=== PATIENT | male | born 1970 | race Caucasian/White ===

== ENCOUNTER 2019-04-01 11:19 | Outpatient (CLI) | payer OTHER ==
[2019-04-01 18:25] LABS: BASOPHILS # (AUTO) 0.1 10^3/uL (0.0-0.1); BASOPHILS % (AUTO) 0.8 %; EOSINOPHILS # (AUTO) 0.2 10^3/uL (0.0-0.7); EOSINOPHILS % (AUTO) 2.4 %; HGB - HEMOGLOBIN 14.7 g/dL (14.0-18.0); LYMPHOCYTES # (AUTO) 1.5 10^3/uL (1.5-3.5); LYMPHOCYTES % (AUTO) 22.7 %; MEAN CORPUSCULAR HEMOGLOBIN 30.6 pg (27.0-31.0); MEAN CORPUSCULAR HGB CONC 33.6 g/dL (32.0-36.0); MEAN CORPUSCULAR VOLUME 91.1 fL (80.0-94.0); MEAN PLATELET VOLUME 10.8 fL (7.4-11.4); MONOCYTES # (AUTO) 0.6 10^3/uL (0.0-1.0); MONOCYTES % (AUTO) 9.6 %; NEUTROPHILS # (AUTO) 4.2 10^3/uL (1.5-6.6); PLT - PLATELET COUNT 260 10^3/uL (130-450); RED BLOOD COUNT 4.81 10^6/uL (4.70-6.10); RED CELL DISTRIBUTION WIDTH 12.5 % (12.0-15.0); WHITE BLOOD COUNT 6.6 x10^3/uL (4.8-10.8)
[2019-04-01 18:46] LABS: HB2 TOTAL 15.3 g/dL; HEMOGLOBIN A1C 0.46 g/dL; HEMOGLOBIN A1C % 4.9 % (4.6-6.2)
[2019-04-01 18:51] LABS: ALBUMIN 4.4 g/dL (3.2-5.5); ALBUMIN/GLOBULIN RATIO 1.6 (1.0-2.2); ALKALINE PHOSPHATASE 75 IU/L (42-121); ALT ALANINE AMINOTRANSFERASE 33 IU/L (10-60); AST ASPARTATE AMINOTRANSFERASE 29 IU/L (10-42); BILIRUBIN,TOTAL 2.3 mg/dL (0.2-1.0); BUN - BLOOD UREA NITROGEN 14 mg/dL (6-20); CALCIUM 9.1 mg/dL (8.5-10.3); CARBON DIOXIDE - CO2 26 mmol/L (21-32); CHLORIDE 106 mmol/L (101-111); CHOL/HDL RATIO 3.8 (<5.0); CHOLESTEROL 184 mg/dL; GFR - MDRD 79 (>89); GLUCOSE 97 mg/dL (70-100); HDL CHOLESTEROL 49 mg/dL; LDL CHOLESTEROL,CALCULATED 116 mg/dL; LDL/HDL RATIO 2.4 (<3.6); SODIUM 139 mmol/L (135-145); TOTAL PROTEIN 7.1 g/dL (6.7-8.2); VLDL CHOLESTEROL 19 mg/dL
== END 2019-04-01 23:59 | disposition home or self-care (01) ==
LOC: LAB.WCP 11:19
PROVIDERS: ATTEND Physician Assistant
DX: Z00.00 Encounter for general adult medical examination without abnormal findings (principal); Z83.3 Family history of diabetes mellitus
CPT/HCPCS: 36415; 80053; 80061; 83036; 83721; 84443; 85025

== ENCOUNTER 2020-05-24 10:11 | Day surgery (SDC) | payer OTHER ==
[2020-05-24] MEDS ORDERED: LACTATED RINGERS 1,000 ML IV ONE ×2 (10:51→12:38)
[2020-05-24] MEDS ORDERED: PROPOFOL 500 MG/50 ML 500 MG/50 ML VIAL ONE (11:38)
[2020-05-24] MEDS ORDERED: LIDOCAINE-MPF 2% 5 ML VIAL ONE (11:38)
[2020-05-24] MEDS ORDERED: fentaNYL 100 MCG/2 ML VIAL ONE (11:39)
[2020-05-24] MEDS ORDERED: MIDAZOLAM 2 MG/2 ML VIAL ONE (11:39)
--- NOTE | 2020-05-24 11:53 | ANESTHESIA ---
Pre-Anesthesia VS, & Labs - Diagnosis abdominal pain - Procedure colonoscopy Vital Signs: Temp Pulse Resp BP Pulse Ox 36.4 C L 66 18 140/81 H 98 05/24/20 10:46 05/24/20 10:46 05/24/20 10:46 05/24/20 10:46 05/24/20 10:46 Height: 6 ft 5 in Weight (kg): 121 kg Body Mass Index: 31.6 BMI Classification: Obese - NPO >8 hours Home Medications and Allergies Allergies/Adverse Reactions: Allergies Allergy/AdvReac Type Severity Reaction Status Date / Time No Known Drug Allergies Allergy Verified 09/19/19 00:05 Anes History & Medical History - Anesthetic History Anesthesia Complications: reports: No previous complications - Medical History Cardiovascular: reports: None Pulmonary: reports: Sleep apnea, CPAP use Gastrointestinal: reports: None Urinary: reports: None Neuro: reports: None Musculoskeletal: reports: None Endocrine/Autoimmune: reports: None Blood Disorders: reports: None Skin: reports: None Smoking Status: Former smoker (quit 10 years ago) Psychosocial: reports: No issues indicated, Alcohol (occassional) History of Cancer?: No - Surgical History General: reports: Cholecystectomy, Appendectomy, Colonoscopy Exam General: Alert, Oriented x3, Cooperative, No acute distress Dental: WNL Mouth Openin Fingerbreadth Neck Mobility: Normal Mallampati classification: II Thyromental Distance: greater than 6 cm Mental/Cognitive Status: Alert/Oriented X3, Normal for patient Plan Anesthesia Type: MAC Consent for Procedure(s) Verified and Reviewed: Yes Code Status: Attempt Resuscitation ASA classification: 2-Mild systemic disease Is this case an emergency?: No
[2020-05-24 13:07] VITALS: BP 110/68
--- NOTE | 2020-05-24 20:16 | ANESTHESIA POST OP EVALUATION ---
Anesthesia Post Eval - Post Anesthesia Eval Vitals: Last Vital Signs Temp 36.9 C 05/24/20 13:07 Pulse 72 05/24/20 13:07 Resp 16 05/24/20 13:07 BP 110/68 05/24/20 13:07 Pulse Ox 98 05/24/20 13:07 CV Function Including HR & BP: Stable Pain Control: Satisfactory Nausea & Vomiting: Negative Mental Status: Baseline Respiratory Status: Airway Patent Hydration Status: Satisfactory Anesthesia Complications: None
== END 2020-05-24 10:12 | disposition home or self-care (01) ==
LOC: SDS 10:11
PROVIDERS: ATTEND Surgery
DX: R10.11 Right upper quadrant pain (principal); K63.89 Other specified diseases of intestine; K64.8 Other hemorrhoids; G47.30 Sleep apnea, unspecified; K43.6 Other and unspecified ventral hernia with obstruction, without gangrene; K42.9 Umbilical hernia without obstruction or gangrene; Z90.49 Acquired absence of other specified parts of digestive tract; E66.9 Obesity, unspecified; Z68.31 Body mass index [BMI] 31.0-31.9, adult; Z87.891 Personal history of nicotine dependence
CPT/HCPCS: 45378; J7120

== ENCOUNTER 2020-05-31 17:15 | Outpatient (CLI) | payer OTHER | END 2020-05-31 17:16 | disposition home or self-care (01) | LOC: COV 17:15 | PROVIDERS: ATTEND Surgery | DX: Z01.812 Encounter for preprocedural laboratory examination (principal); K43.2 Incisional hernia without obstruction or gangrene; Z20.822 Contact with and (suspected) exposure to COVID-19 ==

== ENCOUNTER 2020-06-02 06:26 | Day surgery (SDC) | payer OTHER ==
[~2020-06-02 06:26] MED LIST: HEPARIN 5,000 UNIT/ML VIAL ONE; ceFAZolin 2 GM/50 ML 2 GM/50 ML BAG IV ONE
[2020-06-02] MEDS ORDERED: LACTATED RINGERS 1,000 ML IV ONE ×2 (06:56→10:59)
[2020-06-02] MEDS ORDERED: ceFAZolin 1 GM VIAL ONE ×2 (07:00→07:51)
[2020-06-02] MEDS ORDERED: BUPIVACAINE 0.5% PF 30 ML VIAL ONE (07:00)
[2020-06-02] MEDS ORDERED: LIDOCAINE MPF 2%-EPI 1:200000 20 ML VIAL ONE (07:00)
[2020-06-02] MEDS ORDERED: LIDOCAINE-MPF 2% 5 ML VIAL ONE (07:11)
[2020-06-02] MEDS ORDERED: PROPOFOL 200 MG/20 ML VIAL IVP ONE (07:11)
[2020-06-02] MEDS ORDERED: ROCURONIUM 50 MG/5 ML VIAL ONE ×2 (07:11→08:34)
[2020-06-02] MEDS ORDERED: BUPIVACAINE 0.5% PF 30 ML VIAL INFIL ONE ×2 (07:12→10:24)
[2020-06-02] MEDS ORDERED: LIDOCAINE 2%-EPI 1:100000 20 ML MDV SUBQ ONE ×2 (07:13→10:24)
[2020-06-02] MEDS ORDERED: MIDAZOLAM 2 MG/2 ML VIAL ONE (07:24)
[2020-06-02] MEDS ORDERED: fentaNYL 100 MCG/2 ML VIAL ONE ×2 (07:29→09:11)
[2020-06-02] MEDS ORDERED: ePHEDrine 50 MG/ML VIAL IVP ONE (08:27)
[2020-06-02] MEDS ORDERED: LIDOCAINE-PF 2% 10 ML AMP SUBQ ONE (08:54)
[2020-06-02] MEDS ORDERED: ONDANSETRON 4 MG/2 ML VIAL ONE (09:49)
[2020-06-02] MEDS ORDERED: DEXAMETHASONE 4 MG/ML VIAL ONE (09:49)
[2020-06-02] MEDS ORDERED: KETOROLAC 30 MG/ML VIAL ONE (09:49)
[2020-06-02] MEDS ORDERED: SUGAMMADEX 200 MG/2 ML VIAL IVP ONE (10:24)
[2020-06-02] MEDS ORDERED: HYDROmorphone 0.5 MG/0.5 ML SYRINGE IVP PRN ×2 (10:54→11:07)
[2020-06-02] MEDS ORDERED: oxyCODONE 5 MG TABLET PO PRN (10:54)
[2020-06-02] MEDS ORDERED: ONDANSETRON 4 MG/2 ML VIAL IVP PRN ×2 (10:54→11:07)
[2020-06-02] MEDS ORDERED: LACTATED RINGERS 1,000 ML IV SCH ×2 (11:00→12:00)
--- NOTE | 2020-06-02 11:04 | OPERATIVE REPORT ---
Operative Report - General Procedure Date: 06/02/20 Planned Procedure: 1. Diagnostic laparoscopy 2. Laparoscopic adhesiolysis 3. Possible IPOM x2 4. Possible primary repair 5. Possible transversus abdominis plane block Pre-Op Diagnosis: Primary laparoscopic surgery; Multiple incisional hernias Procedure Performed: 1. Diagnostic laparoscopy 2. Laparoscopic adhesiolysis, extensive 3. IPOM x2 (Intraperitoneal onlay mesh) 4. Right upper quadrant hernia reduction and primary repair, laparoscopic 5. Umbilical hernia primary repair 6. Transversus abdominis plane block Post Op Diagnosis: Same; dense adhesions; successful repair X2 - Procedure Note Primary Surgeon: Gilma Secondary Surgeon: Dana Anesthesia Provider: Joni Anesthesia Technique: General ET tube, Local, Regional block Pathology: None Estimated Blood Loss (mL): 20 Indications: 1. Worsening abdominal pain/discomfort 2. Incarcerated right upper quadrant incisional hernia, omental fat 3. Incarcerated nonreducible umbilical hernia, incisional 4. Prior laparoscopic cholecystectomy Findings: 1. Dense right upper quadrant adhesions omental around large defect approximately 4 cm x 3 cm with incarcerated fat 2. Successful reduction of right upper quadrant hernia; primary repair achieved with V-Loc suture 3. Intraperitoneal onlay mesh echo ventral light ST performed for right upper quadrant with 11 cm implant 4. Umbilical hernia large performed for primary repair after dissection and I palm performed using 15 x [address] implant 5. No inadvertent injury hemostatic successful repair 6. Trochars were as follows: A. Umbilical site B. Right upper quadrant 5 mm C. Right lower quadrant 5 mm D. Left upper quadrant 5 mm E. Left lower quadrant 5 mm F. Small incision made in right upper quadrant overlying the historic incisional hernia following repair with Deven-Karuna Complications: NONE - Other Other Information/Narrative: PENDING FINAL REPORT
[2020-06-02] MEDS ORDERED: MORPHINE 2 MG/ML CARPUJECT IVP PRN (11:07)
[2020-06-02] MEDS ORDERED: NALOXONE 0.4 MG/ML VIAL IVP PRN (11:07)
[2020-06-02] MEDS ORDERED: fentaNYL 100 MCG/2 ML VIAL IVP PRN (11:07)
[2020-06-02] MEDS ORDERED: ePHEDrine 50 MG/ML VIAL IVP PRN (11:07)
[2020-06-02] MEDS ORDERED: METOCLOPRAMIDE 10 MG/2 ML VIAL IVP PRN (11:07)
[2020-06-02] MEDS ORDERED: ATROPINE ABBOJECT 1 MG/10 ML SYRINGE IVP PRN (11:07)
--- NOTE | 2020-06-02 11:07 | ANESTHESIA ---
Pre-Anesthesia VS, & Labs - Diagnosis R incisional hernia, umbilical hernia - Procedure Diagnostic lap, incisional hernia repair, umbilical hernia repair Vital Signs: Temp Pulse Resp BP Pulse Ox 36.0 C L 75 16 132/77 H 96 06/02/20 06:58 06/02/20 06:58 06/02/20 06:58 06/02/20 06:58 06/02/20 06:58 Height: 6 ft 5 in Weight (kg): 122.6 kg Body Mass Index: 32.0 BMI Classification: Obese - NPO >8 hours Home Medications and Allergies Home Medications: Ambulatory Orders No Known Home Medications 05/25/20 Active Medications Hydromorphone HCl (Hydromorphone 0.5 Mg/0.5 Ml Syringe) 0.5 mg IVP Q30M PRN PRN Reason: Breakthrough Pain Lactated Ringer's (Lr) 1,000 mls @ 100 mls/hr IV .Q10H MARY Ondansetron HCl (Ondansetron 4 Mg/2 Ml Vial) 4 mg IVP Q6HR PRN PRN Reason: Nausea / Vomiting Oxycodone HCl (Oxycodone 5 Mg Tablet) 5 mg PO Q4HR PRN PRN Reason: PAIN No Known Home Medications 05/25/20 Allergies/Adverse Reactions: Allergies Allergy/AdvReac Type Severity Reaction Status Date / Time No Known Drug Allergies Allergy Verified 09/19/19 00:05 Anes History & Medical History - Anesthetic History Anesthesia Complications: reports: No previous complications Family history of Anesthesia Complications: Denies Family history of Malignant Hyperthermia: Denies - Medical History Cardiovascular: reports: None Pulmonary: reports: Sleep apnea, CPAP use Gastrointestinal: reports: None Urinary: reports: None Neuro: reports: None Musculoskeletal: reports: None Endocrine/Autoimmune: reports: None Blood Disorders: reports: None Skin: reports: None Smoking Status: Former smoker - Surgical History General: reports: Cholecystectomy, Appendectomy, Colonoscopy Exam General: Alert, Oriented x3, Cooperative Dental: WNL Mouth Openin Fingerbreadth Neck Mobility: Normal Mallampati classification: II Thyromental Distance: 4-6 cm Respiratory: Lungs clear Cardiovascular: Regular rate Plan Anesthesia Type: General, Transverse Abdominis Plane (TAP) Block Regional Block: Per Surgeon's request for Post Op pain control Consent for Procedure(s) Verified and Reviewed: Yes Code Status: Attempt Resuscitation ASA classification: 1-Healthy patient Is this case an emergency?: No
--- NOTE | 2020-06-02 11:34 | ANESTHESIA POST OP EVALUATION ---
Anesthesia Post Eval - Post Anesthesia Eval Vitals: Last Vital Signs Temp 36.2 C L 06/02/20 11:24 Pulse 76 06/02/20 11:24 Resp 14 06/02/20 11:24 BP 152/90 H 06/02/20 11:24 Pulse Ox 100 06/02/20 11:24 CV Function Including HR & BP: Stable Pain Control: Satisfactory Nausea & Vomiting: Negative Mental Status: Baseline Respiratory Status: Airway Patent Hydration Status: Satisfactory Anesthesia Complications: None
[2020-06-02] MEDS ORDERED: oxyCODONE 5 MG TABLET ONE (11:35)
[2020-06-02 15:19] VITALS: BP 145/78
== END 2020-06-02 06:27 | disposition home or self-care (01) ==
LOC: SDS 06:26
PROVIDERS: ATTEND Surgery
PROC: 0WUF4JZ Supplement Abdominal Wall with Synthetic Substitute, Percutaneous Endoscopic Approach (ICD-10-PCS; 2020-06-02)
PROC: 0DNU4ZZ Release Omentum, Percutaneous Endoscopic Approach (ICD-10-PCS; principal; 2020-06-02 07:30)
DX: K43.0 Incisional hernia with obstruction, without gangrene (principal); K40.90 Unilateral inguinal hernia, without obstruction or gangrene, not specified as recurrent; G47.30 Sleep apnea, unspecified; Z87.891 Personal history of nicotine dependence; Z90.49 Acquired absence of other specified parts of digestive tract; E66.9 Obesity, unspecified; Z68.32 Body mass index [BMI] 32.0-32.9, adult
CPT/HCPCS: 49329; 49655; A9270; C1781; J0690; J7120

== ENCOUNTER 2020-06-04 00:35 | Observation (INO) | payer OTHER ==
--- OUTSIDE RECORDS SUMMARY | 2020-06-04 00:52 | EXTERNAL MEDICAL SUMMARY RPT | Continuity of Care Document ---
:1970 Demographics Phone Unavailable Preferred Language Unknown Marital Status Unknown Yazidi Affiliation Unknown Race Unknown Ethnic Group Unknown Author Organization [facility] Address [address] [phone] Phone Social History date description facility [phone]
[2020-06-04] MEDS ORDERED: KETOROLAC 30 MG/ML VIAL IVP STA (01:59)
[2020-06-04] MEDS ORDERED: ONDANSETRON 4 MG/2 ML VIAL IVP STA (02:04)
[2020-06-04] MEDS ORDERED: SODIUM CHLORIDE 0.9% 1,000 ML IV STA (02:04)
[2020-06-04 02:17] LABS: BASOPHILS # (AUTO) 0.1 10^3/uL (0.0-0.1); BASOPHILS % (AUTO) 0.4 %; EOSINOPHILS # (AUTO) 0.1 10^3/uL (0.0-0.7); EOSINOPHILS % (AUTO) 0.8 %; HCT - HEMATOCRIT 43.6 % (42.0-52.0); HGB - HEMOGLOBIN 14.2 g/dL (14.0-18.0); LYMPHOCYTES # (AUTO) 1.5 10^3/uL (1.5-3.5); LYMPHOCYTES % (AUTO) 9.2 %; MEAN CORPUSCULAR HEMOGLOBIN 29.7 pg (27.0-31.0); MEAN CORPUSCULAR HGB CONC 32.6 g/dL (32.0-36.0); MEAN CORPUSCULAR VOLUME 91.2 fL (80.0-94.0); MEAN PLATELET VOLUME 9.8 fL (7.4-11.4); MONOCYTES # (AUTO) 0.9 10^3/uL (0.0-1.0); MONOCYTES % (AUTO) 5.3 %; NEUTROPHILS # (AUTO) 13.6 10^3/uL (1.5-6.6); NEUTROPHILS % (AUTO) 83.9 %; PLT - PLATELET COUNT 249 10^3/uL (130-450); RED BLOOD COUNT 4.78 10^6/uL (4.70-6.10); RED CELL DISTRIBUTION WIDTH 12.2 % (12.0-15.0); WHITE BLOOD COUNT 16.2 x10^3/uL (4.8-10.8)
[2020-06-04 02:29] LABS: ALBUMIN 4.5 g/dL (3.2-5.5); ALBUMIN/GLOBULIN RATIO 1.6 (1.0-2.2); BILIRUBIN,TOTAL 2.3 mg/dL (0.2-1.0); CALCIUM 9.5 mg/dL (8.5-10.3); CREATININE 1.2 mg/dL (0.6-1.2); POTASSIUM 3.8 mmol/L (3.5-5.0); TOTAL PROTEIN 7.3 g/dL (6.7-8.2)
[2020-06-04] MEDS ORDERED: HYDROmorphone 1 MG/ML CARPUJECT IVP PRN (03:53)
--- NOTE | 2020-06-04 03:55 | ED Physician Documentation ---
History of Present Illness - Stated complaint Stated Complaint: POST OP AB PX - Chief complaint Chief Complaint: Abd Pain - History obtained from History obtained from: Patient - Additonal information Additional information: 50-year-old man with past medical history of hernia status post repair on 06/[address] Greenwood presents with postoperative abdominal discomfort, bloating, diffuse pain that is nonradiating associated with constipation. Constant, aching, gradual onset, associated with increased flatus and inability to have a bowel movement. Patient denies fevers, urinary symptoms, or vomiting. Review of Systems Ten Systems: 10 systems reviewed and negative GI: reports: Abdominal Pain, Constipation. denies: Vomiting PD PAST MEDICAL HISTORY - Past Medical History Past Medical History: Yes Cardiovascular: None Respiratory: Sleep apnea, CPAP use Neuro: None Endocrine/Autoimmune: None GI: None, Hiatal hernia, Cholelithiasis : None HEENT: None Psych: None Musculoskeletal: None Derm: None - Past Surgical History Past Surgical History: Yes General: Cholecystectomy, Appendectomy, Hiatal hernia repair, Colonoscopy - Present Medications Home Medications: Ambulatory Orders Medication Instructions Recorded Confirmed Acetaminophen [8 Hour Pain Relief] 650 mg PO Q6HR PRN #60 tab 06/02/20 06/04/20 Docusate Sodium 100Mg Capsule 100 mg PO BID #60 tab 06/02/20 06/04/20 [Colace 100Mg Capsule] methocarbamoL [Robaxin] 500 mg PO Q6HR PRN #30 tablet 06/02/20 06/04/20 oxyCODONE [Roxicodone] 5 mg PO Q6H PRN #24 tablet 06/02/20 06/04/20 polyethylene glycoL 3350 [Miralax] 17 gm PO DAILY #238 ml 06/02/20 06/04/20 - Allergies Allergies/Adverse Reactions: Allergies Allergy/AdvReac Type Severity Reaction Status Date / Time No Known Drug Allergies Allergy Verified 06/04/20 01:06 - Social History Does the pt smoke?: No Smoking Status: Never smoker Does the pt drink ETOH?: Yes Does the pt have substance abuse?: No - Immunizations Immunizations are current?: Yes - POLST Patient has POLST: No PD ED PE NORMAL - Vitals Vital signs reviewed: Yes - General General: Alert and oriented X 3, Well developed/nourished, Other (Mild to moderate distress) - HEENT HEENT: Atraumatic, PERRL, EOMI - Neck Neck: Supple, no meningeal sign - Cardiac Cardiac: RRR - Respiratory Respiratory: No respiratory distress, Clear bilaterally - Abdomen Abdomen: Other (Abdomen mildly distended with discomfort diffusely to palpation. Decreased bowel sounds all 4 quadrants.) - Male Male : Deferred - Rectal Rectal: Other (Brown stool in the rectal vault. Normal prostate) - Derm Derm: Normal color - Extremities Extremities: No deformity - Neuro Neuro: Alert and oriented X 3 - Psych Psych: Normal mood, Normal affect Results - Vitals Vitals: Vital Signs - 24 hr 06/04/20 06/04/20 06/04/20 01:03 01:10 04:24 Temperature 36.7 C 36.7 C 36.7 C Heart Rate 100 100 96 Respiratory 20 20 16 Rate Blood Pressure 147/96 H 147/96 H 151/94 H O2 Saturation 100 100 100 06/04/20 05:16 Temperature 36.7 C Heart Rate 81 Respiratory 16 Rate Blood Pressure 146/87 H O2 Saturation 98 Oxygen O2 Source Room air - Labs Labs: Laboratory Tests 06/04/20 06/04/20 06/04/20 02:10 02:10 04:14 WBC 16.2 H RBC 4.78 Hgb 14.2 Hct 43.6 MCV 91.2 MCH 29.7 MCHC 32.6 RDW 12.2 Plt Count 249 MPV 9.8 Neut # (Auto) 13.6 H Lymph # (Auto) 1.5 [place] # (Auto) 0.9 Eos # (Auto) 0.1 Baso # (Auto) 0.1 Absolute Nucleated RBC 0.00 Nucleated RBC % 0.0 Sodium 138 Potassium 3.8 Chloride 101 Carbon Dioxide 27 Anion Gap 10.0 BUN 12 Creatinine 1.2 Estimated GFR (MDRD) 64 L Glucose 115 H Calcium 9.5 Total Bilirubin 2.3 H AST 29 ALT 37 Alkaline Phosphatase 81 Total Protein 7.3 Albumin 4.5 Globulin 2.8 Albumin/Globulin Ratio 1.6 Lipase 19 L Urine Color YELLOW Urine Clarity CLEAR Urine pH 6.0 Ur Specific [place] 1.020 Urine Protein NEGATIVE Urine Glucose (UA) NEGATIVE Urine Ketones NEGATIVE Urine Occult Blood NEGATIVE Urine Nitrite NEGATIVE Urine Bilirubin NEGATIVE Urine Urobilinogen 0.2 (NORMAL) Ur Leukocyte Esterase NEGATIVE Ur Microscopic Review NOT INDICATED Urine Culture Comments NOT INDICATED PD MEDICAL DECISION MAKING - ED course ED course: Patient with postoperative ileus on abdominal x-ray. Discussed with Dr. Greenwood who is recommending admission for observation. They will observe him over the next 24 hours. We will put in preliminary admission orders. Departure - Departure Disposition: ED Place in Observation Clinical Impression: Postoperative ileus Condition: Stable
[2020-06-04] MEDS ORDERED: SODIUM CHLORIDE 0.9% 1,000 ML IV SCH (04:00)
[2020-06-04] MEDS: HYDROmorphone 2 MG/ML VIAL IVP SCH ×8 (04:00→17:37)
[2020-06-04 04:30] LABS: BILIRUBIN,URINE NEGATIVE (NEGATIVE); GLUCOSE, URINE (UA) NEGATIVE (NEGATIVE); KETONES,URINE (UA) NEGATIVE (NEGATIVE); LEUKOCYTE ESTERASE, URINE NEGATIVE (NEGATIVE); NITRITE,URINE NEGATIVE (NEGATIVE); OCCULT BLOOD,URINE NEGATIVE (NEGATIVE); PROTEIN,URINE NEGATIVE (NEGATIVE); UROBILINOGEN,URINE 0.2 (NORMAL) E.U./dL (NORMAL)
[2020-06-04 04:31] LABS: CLARITY,URINE CLEAR (CLEAR)
[2020-06-04] MEDS ORDERED: SODIUM CHLORIDE FLUSH 0.9% 10 ML SYRINGE IVP PRN (05:39)
--- OUTSIDE RECORDS SUMMARY | 2020-06-04 05:58 | EXTERNAL MEDICAL SUMMARY RPT | Continuity of Care Document ---
:1970 Demographics Phone Unavailable Preferred Language Unknown Marital Status Unknown Gnosticism Affiliation Unknown Race Unknown Ethnic Group Unknown Author Organization [facility] Address [address] [phone] Phone Social History date description facility [phone]
[2020-06-04] MEDS: ACETAMINOPHEN 1,000 MG/100 ML 100 ML IV PRN ×3 (06:34→21:56)
[2020-06-04] MEDS: D5NS W/20 MEQ KCL 1,000 ML IV SCH ×3 (06:34→23:55)
[2020-06-04] MEDS: HYDROmorphone 0.5 MG/0.5 ML SYRINGE IVP PRN ×3 (06:34→17:17)
[2020-06-04] MEDS: METOCLOPRAMIDE 10 MG/2 ML VIAL IVP SCH ×4 (06:35→23:57)
[2020-06-04] MEDS: methocarbamoL 500 MG TABLET PO SCH ×4 (06:35→23:57)
[2020-06-04] MEDS: PANTOPRAZOLE 40 MG VIAL IVP SCH (06:35)
[2020-06-04] MEDS: ENOXAPARIN 40 MG/0.4 ML SYRINGE SUBQ SCH (08:54)
[2020-06-04] MEDS: SODIUM CHLORIDE FLUSH 0.9% 10 ML SYRINGE IVP SCH ×3 (08:54→23:56)
--- NOTE | 2020-06-04 09:20 | XRAY Report ---
PROCEDURE: Abdomen 2 View X-Ray INDICATIONS: postoperative ileus TECHNIQUE: 4 views of the abdomen were acquired. COMPARISON: CT abdomen pelvis dated 09/19/2019 FINDINGS: Surgical changes and devices: None. Bowel: No pneumoperitoneum. There are a few air-filled loops of small bowel. Diffuse stool and air i s noted throughout the colon extending into the rectum. No free air within the limits of this exam. Soft tissues: Postsurgical changes of cholecystectomy lung with surgical john overlying the lower abdomen. Bones: Degenerative changes of the spine incompletely evaluated. No acute osseous abnormality. IMPRESSION: Nonobstructive bowel gas pattern. Multiple air-filled loops of nondilated small bowel may suggest ile us. Agree with preliminary report. Reviewed by: Mario Inman DO on 06/04/2020 8:19 AM TEJAL Approved by: Mario Inman DO on 06/04/2020 8:19 AM TEJAL Station ID: [id number]
--- NOTE | 2020-06-04 11:55 | PHARMACY PROGRESS NOTE ---
- Best Possible Medication History Admit Date and Time: 06/04/20 0539 Processed by: Pharmacy Medication History completed: Yes Patient Interview: Completed Secondary Source(s): Prescription bottles, Pharmacy records, Previous admit records As the person ultimately responsible for medication therapy, providers are able to order a medication from an existing home medication list in [facility] via the "Reconcile Routine" prior to Confirmation of that medication by computer support analyst. Such practice is discouraged except when the physician, in their clinical judgment, deems that a medical need exists for a medication without regard to previous use.
[2020-06-04] MEDS ORDERED: IOPAMIDOL-300 100 ML VIAL ONE (15:03)
[2020-06-04] MEDS ORDERED: IOPAMIDOL-300 50 ML VIAL ONE (15:09)
--- NOTE | 2020-06-04 15:53 | SURGERY HX AND PHYSICAL(T) ---
Surgical History & Physical - Chief Complaint/HPI Chief Complaint: Postoperative ileus History of Present Illness: 50-year-old male patient 2 days status post below listed procedures, who presents with abdominal distention, decreased bowel function, nausea no vomiting. Evaluated through the ER with plain film which was consistent with ileus. Patient admitted for symptomatic management. Denies fevers, denies emesis, initially postoperatively was feeling well however yesterday into evening began having significant distention and nausea. Pre-Op Diagnosis: Prior laparoscopic surgery; Multiple incisional hernias Procedure Performed: 1. Diagnostic laparoscopy 2. Laparoscopic adhesiolysis, extensive 3. IPOM x2 (Intraperitoneal onlay mesh) 4. Right upper quadrant hernia reduction and primary repair, laparoscopic 5. Umbilical hernia primary repair 6. Transversus abdominis plane block Post Op Diagnosis: Same; dense adhesions; successful repair X2 - PMH/PSH/Social Hx Does the pt have a hx of MRSA?: No Neurological History: None Eyes, Ears, Nose, Throat: None Cardiovascular: None Respiratory: Sleep apnea, CPAP use Skin: None Endocrine/Autoimmune: None Gastrointestinal: Hiatal hernia, Cholelithiasis Urinary: None Musculoskeletal: None Blood Disorders: None Psychiatric: None General: Cholecystectomy, Appendectomy, Hiatal hernia repair, Colonoscopy Smoking Status: Former smoker Does the pt drink ETOH?: Yes Frequency: Occasional Does the pt have substance abuse?: No - Home Meds and Allergies Allergies/Adverse Reactions: Allergies Allergy/AdvReac Type Severity Reaction Status Date / Time No Known Drug Allergies Allergy Verified 06/04/20 01:06 - Review of Systems Constitutional: Malaise Gastrointestinal: Nausea, Flatus. No: Vomiting, Difficulty swallowing, Abdominal pain, Diarrhea Gentinourinary: No: Dysuria - Vital Signs Heart Rate: 96 Blood Pressure: 146/87 Temperature: 37.3 C Respiratory Rate: 18 O2 Saturation: 94 Weight (kg): 122.47 kg Height: 1.96 m - Physical Exam Comments/Other: General Appearance: positive: No acute distress Eyes Bilateral: positive: Normal inspection ENT: positive: ENT inspection nml Neck: positive: Nml inspection Respiratory: positive: Chest non-tender, No respiratory distress, Breath sounds nml. negative: Wheezes, Rales, Rhonchi Cardiovascular: positive: Regular rate & rhythm Abdomen: See below Extremities: positive: Non-tender, Full ROM, Nml appearance Neurologic/Psychiatric: positive: Oriented x3, CN's nml (2-12) Abdominal Exam: Inspection - Erythema none; Scars trochars well approximated with john in place Auscultation -hypoactive bowel Palpation - Hernias none; Fluctuance none; Induration none; mildly distended, appropriately tender - Patient Review Patient Review: Problems were reviewed with the patient during this visit. Medications were reviewed with the patient during this visit. Allergies were reviewed this patient during this visit. Pertinent Tests Reviewed: All pertitent test for this patient were reviewed. - Assessment & Plan Assessment and Plan: 50-year-old male with no significant comorbid state with history of recent diagnostic laparoscopy and laparoscopic assisted hernia repair x2, secondary to incarcerated hernias from laparoscopic cholecystectomy historically. Patient presents with ileus/partial small bowel obstruction with associated obstipation. No peritoneal signs at this time. Plan as follows: 1. bowel rest, nasogastric decompression, IV fluid resuscitation. 2. Serial abdominal exams, plain film imaging, repeat imaging with CT and contrast challenge. 3. May need operative intervention if fails conservative management. Will follow closely. However this is likely narcotic induced and will resolve. 4. Electrolytes normal at this time we will continue to monitor them with daily lab draws.
[2020-06-04] MEDS: ONDANSETRON 4 MG/2 ML VIAL IVP PRN (17:18)
[2020-06-04] MEDS ORDERED: IOPAMIDOL-300 100 ML VIAL IVP ONE (17:18)
[2020-06-04] MEDS ORDERED: IOPAMIDOL-300 50 ML VIAL PO ONE (17:18)
--- NOTE | 2020-06-04 18:06 | CT Report ---
PROCEDURE: Abdomen/Pelvis W INDICATIONS: evalute for ileus, post operative CONTRAST: IV CONTRAST: Isovue 300 ml: 100 PO CONTRAST: Isovue 300 ml50 TECHNIQUE: After the administration of nonionic contrast, 5 mm thick sections acquired from the diaphragms to th e symphysis. Oral contrast was also given. 5 mm thick coronal and sagittal reformats were acquired. For radiation dose reduction, the following was used: automated exposure control, adjustment of mA and/or kV according to patient size. COMPARISON: 09/19/2019 FINDINGS: Image quality: Excellent. ABDOMEN: Lung bases: Basilar atelectasis. Heart size is normal. Solid organs: Liver and spleen are normal in size and enhancement. Gallbladder is surgically absent . Biliary system is non dilated. Pancreas enhances normally. No adrenal nodules. Kidneys demonstr ate normal size and enhancement, without hydronephrosis. There is mild renal atrophy on the right. Peritoneum and bowel: The stomach is unremarkable in appearance. Small bowel is normal in caliber wit hout evidence of dilation. Patient is status post appendectomy. The colon is distended with stool and air from the cecum through the descending colon. No wall thickening or surrounding inflammation. Nodes and vessels: No retroperitoneal or mesenteric adenopathy by size criteria. Aorta and inferior vena cava are normal in size. Miscellaneous: Postsurgical changes of the anterior abdominal wall. There are sutures noted along the midline and both sides of the abdomen with mild adjacent inflammation. No surrounding inflammation. Adjacent to right sided port site there is inflammation and edema noted which extends intraabdominall y. Underlying the right transversalis fascia there is a 1.4 x 4.9 x 7.1 cm somewhat heterogeneous flu id collection. In addition within the abdomen adjacent bony there is a similar-appearing fluid collec tion measuring 1.2 x 6.4 x 4.5 cm. Small focus of air is noted underlying the transversalis fascia. PELVIS: Genitourinary: Bladder wall thickness is normal. Miscellaneous: Left greater than right fat-containing ventral hernias. Bones: No suspicious bony lesions. No vertebral body compression fractures. IMPRESSION: Postsurgical changes as described above. No dilated loops of bowel to suggest ileus or small bowel ob struction. Heterogeneous fluid collection underlying the transversalis fascia as well as adjacent to the muscles or intra-abdominal free suggestive of postoperative hematoma versus seroma. No evidence of active ex travasation within the limits of this exam. Moderate stool burden. Reviewed by: Mario Inman DO on 06/04/2020 5:05 PM TEJAL Approved by: Mario Inman DO on 06/04/2020 5:05 PM TEJAL Station ID: [id number]
[2020-06-04] MEDS: polyethylene glycoL 3350 17 GM PACKET PO SCH (21:42)
[2020-06-04] MEDS: DOCUSATE SODIUM 100 MG CAPSULE PO SCH (21:42)
[2020-06-04] MEDS: KETOROLAC 30 MG/ML VIAL IVP SCH ×2 (21:44→23:57)
[2020-06-05 05:24] LABS: BASOPHILS # (AUTO) 0.1 10^3/uL (0.0-0.1); BASOPHILS % (AUTO) 0.4 %; EOSINOPHILS # (AUTO) 0.3 10^3/uL (0.0-0.7); EOSINOPHILS % (AUTO) 2.1 %; HCT - HEMATOCRIT 37.9 % (42.0-52.0); HGB - HEMOGLOBIN 12.6 g/dL (14.0-18.0); LYMPHOCYTES # (AUTO) 1.4 10^3/uL (1.5-3.5); MEAN CORPUSCULAR HEMOGLOBIN 30.3 pg (27.0-31.0); MEAN CORPUSCULAR HGB CONC 33.2 g/dL (32.0-36.0); MEAN CORPUSCULAR VOLUME 91.1 fL (80.0-94.0); MEAN PLATELET VOLUME 10.2 fL (7.4-11.4); MONOCYTES # (AUTO) 1.2 10^3/uL (0.0-1.0); MONOCYTES % (AUTO) 8.6 %; NEUTROPHILS % (AUTO) 78.5 %; PLT - PLATELET COUNT 215 10^3/uL (130-450); RED BLOOD COUNT 4.16 10^6/uL (4.70-6.10); RED CELL DISTRIBUTION WIDTH 12.1 % (12.0-15.0); WHITE BLOOD COUNT 13.9 x10^3/uL (4.8-10.8)
[2020-06-05] MEDS: methocarbamoL 500 MG TABLET PO SCH ×3 (05:24→17:30)
[2020-06-05] MEDS: KETOROLAC 30 MG/ML VIAL IVP SCH ×3 (05:25→17:30)
[2020-06-05] MEDS: METOCLOPRAMIDE 10 MG/2 ML VIAL IVP SCH ×3 (05:25→17:30)
[2020-06-05 05:39] LABS: ALBUMIN 3.6 g/dL (3.2-5.5); ALBUMIN/GLOBULIN RATIO 1.4 (1.0-2.2); BILIRUBIN,TOTAL 4.8 mg/dL (0.2-1.0); CALCIUM 8.7 mg/dL (8.5-10.3); POTASSIUM 3.7 mmol/L (3.5-5.0); TOTAL PROTEIN 6.2 g/dL (6.7-8.2)
[2020-06-05] MEDS: PANTOPRAZOLE 40 MG VIAL IVP SCH (06:22)
[2020-06-05] MEDS: ACETAMINOPHEN 1,000 MG/100 ML 100 ML IV PRN (06:22)
[2020-06-05] MEDS: DOCUSATE SODIUM 100 MG CAPSULE PO SCH (08:47)
[2020-06-05] MEDS: polyethylene glycoL 3350 17 GM PACKET PO SCH (08:47)
[2020-06-05] MEDS: HYDROmorphone 0.5 MG/0.5 ML SYRINGE IVP PRN ×2 (08:54→15:23)
[2020-06-05] MEDS: ENOXAPARIN 40 MG/0.4 ML SYRINGE SUBQ SCH (08:54)
[2020-06-05] MEDS: SODIUM CHLORIDE FLUSH 0.9% 10 ML SYRINGE IVP SCH ×2 (08:57→15:37)
[2020-06-05] MEDS: D5NS W/20 MEQ KCL 1,000 ML IV SCH (11:00)
[2020-06-05] MEDS: ONDANSETRON 4 MG/2 ML VIAL IVP PRN (14:16)
[2020-06-05 15:31] VITALS: BP 150/91
--- NOTE | 2020-06-05 17:40 | DISCHARGE SUMMARY ---
"Discharge Summary Admit Date: 06/04/20 Discharge Date: 06/05/20 Discharging Provider: Gilma Primary Care Provider: Bari Code Status: Attempt Resuscitation Condition at Discharge: Good Discharge Disposition: 01 Home, Self Care - DIAGNOSES Admission Diagnoses: 1. Status post primary laparoscopic surgery 2. History of multiple incisional hernias 3. History of dense intra-abdominal adhesions 4. Successful repair X2 laparoscopic assisted hernias 5. Ileus/bowel obstruction 6. Postoperative state Discharge Diagnoses with Status of Each Condition: 1. Status post primary laparoscopic surgery -RESOLVED 2. History of multiple incisional hernias -RESOLVED 3. History of dense intra-abdominal adhesions -RESOLVED 4. Successful repair X2 laparoscopic assisted hernias -RESOLVED 5. Ileus/bowel obstruction -RESOLVED 6. Postoperative state -RESOLVED - HPI History of Present Illness: 50-year-old male patient 2 days status post below listed procedures, who presents with abdominal distention, decreased bowel function, nausea no vom iting. Evaluated through the ER with plain film which was consistent with ileus. Patient admitted for symptomatic management. Denies fevers, denies emesis, initially postoperatively was feeling well however yesterday into evening began having significant distention and nausea. Pre-Op Diagnosis: Prior laparoscopic surgery; Multiple incisional hernias Procedure Performed: 1. Diagnostic laparoscopy 2. Laparoscopic adhesiolysis, extensive 3. IPOM x2 (Intraperitoneal onlay mesh) 4. Right upper quadrant hernia reduction and primary repair, laparoscopic 5. Umbilical hernia primary repair 6. Transversus abdominis plane block Post Op Diagnosis: Same; dense adhesions; successful repair X2 - CONSULTS | PROCEDURES Consultations: NONE Procedures: NONE ON THIS ADMISSION - HOSPITAL COURSE Hospital Course: 50-year-old male with no significant comorbid state with history of recent diagnostic laparoscopy and laparoscopic assisted hernia repair x2, secondary to incarcerated hernias from laparoscopic cholecystectomy historically. Patient presents with ileus/partial small bowel obstruction with associated obstipation. No peritoneal signs at this time. Plan as follows: 1. bowel rest, nasogastric decompression, IV fluid resuscitation. 2. Serial abdominal exams, plain film imaging, repeat imaging with CT and contrast challenge. 3. May need operative intervention if fails conservative management. Will follow closely. However this is likely narcotic induced and will resolve. 4. Electrolytes normal at this time we will continue to monitor them with daily lab draws. Patient admitted with early partial postoperative small bowel obstruction versus more likely narcotic ileus. Patient had already undergone during previous encounter intervention as listed in the electronic medical record. Tolerated procedure well for which there was no complication. Postoperatively the patient was managed for postoperative analgesia and resumption of bowel function. Patient was rested for the bowel until positive resumption not only by clinical measures but also as indicated by imaging with CT scan as listed below. We slowly advanced patient's diet for which he tolerated oral intake without any complication. Denied nausea denied vomiting. Was advanced for diet without any complication. Discharge instructions given. Analgesia with historic narcotics counseled against given nuha he was with regard to opiate analgesia thus he was counseled to continue with acetaminophen at time of discharge. Patient plan for follow- up. Fluid collection noted within the transversalis on imaging was likely from the patient's tap block. No concerns for active infectious process or otherwise. Computed tomography scan abdomen pelvis impression: 1. Postsurgical changes as described above. No dilated loops of bowel to suggest ileus or small bowel obstruction. 2. Heterogeneous fluid collection underlying the transversalis fascia as well as the junction to the muscles or intra-abdominal suggestive of postoperative hematoma versus seroma. No evidence of active extravasation within the limits of this exam. - ALLERGIES Allergies/Adverse Reactions: Allergies Allergy/AdvReac Type Severity Reaction Status Date / Time No Known Drug Allergies Allergy Verified 06/04/20 01:06 - MEDICATIONS Home Medications: Ambulatory Orders Medication Instructions Recorded Confirmed Acetaminophen [8 Hour Pain Relief] 650 mg PO Q6HR PRN #60 tab 06/02/20 06/04/20 Docusate Sodium 100Mg Capsule 100 mg PO BID #60 tab 06/02/20 06/04/20 [Colace 100Mg Capsule] methocarbamoL [Robaxin] 500 mg PO Q6HR PRN #30 tablet 06/02/20 06/04/20 oxyCODONE [Roxicodone] 5 mg PO Q6H PRN #24 tablet 06/02/20 06/04/20 polyethylene glycoL 3350 [Miralax] 17 gm PO DAILY #238 ml 06/02/20 06/04/20 methocarbamoL [Robaxin] 500 mg PO Q6HR #0 tablet 06/05/20 - PHYSICAL EXAM AT DISCHARGE General Appearance: positive: No acute distress, Alert Eyes Bilateral: positive: Normal inspection, PERRL, EOMI ENT: positive: ENT inspection nml Neck: positive: Nml inspection Respiratory: positive: Chest non-tender, No respiratory distress, Breath sounds nml. negative: Wheezes, Rales, Rhonchi Cardiovascular: positive: Regular rate & rhythm Abdomen: positive: Non-tender, No distention, Other (Below for additional). negative: Guarding, Rebound Skin: positive: Color nml, No rash Extremities: positive: Non-tender, Full ROM, Nml appearance Neurologic/Psychiatric: positive: Oriented x3, CN's nml (2-12), Motor nml, Sensation nml Physical Exam Other/Comments: Postoperative examination abdominal Exam: Inspection - Erythema none; Scars trocars well healed, clean dry and intact Auscultation -normoactive bowel sounds Palpation - Hernias none; Fluctuance none; Induration none; Scar N/A - LABS Result Diagrams: 06/05/20 18:05 06/05/20 18:05 - SEPSIS Current Stage of Sepsis: Ruled out - FOLLOW UP Follow Up: 1. Follow-up with me in 2 weeks for staple remover 2. Follow-up with primary care 3. Continue with analgesia 4. See attached discharge instructions: No heavy lifting, pushing, or pulling. Stairs are allowed, no strenuous/exertional activities. 5-10lbs weight carrying limit (i.e. gallon of milk) If provided, abdominal binder while out of bed and while ambulating. Call or proceed to clinic/ER for fevers, severe pain, nausea, vomiting, inability to pass flatus/stool, bleeding, wound redness/discharge, weakness, excessively loose stool/diarrhea, or for any other reasonably worrisome symptom or concern. Soft diet, no raw vegetables, avoid high fiber foods. Colace 100mg by mouth twice to three times daily while taking narcotic pain medication. If no bowel movement in 24-48hr, may take 17g Miralax in 8oz water twice daily until bowel movement. May shower, no submersive bathing. Follow up in clinic in 2-4 weeks for wound check and staple removal. No driving while taking narcotic pain medications. Follow up with primary care provider and/or medical subspecialist following discharge as well. Patient not allowed to drive self today or within 24 hours of surgery. - TIME SPENT Time Spent in Discharge (Minutes): 60"
--- NOTE | 2020-06-05 17:40 | Discharge Plan ---
Discharge Plan Problem Reviewed?: Yes Disposition: Home, Self Care Condition: Stable Diet: Soft Activity Restrictions: Activity as Tolerated Shower Restrictions: No Driving Restrictions: Yes (not while taking narcotics) Weight Bearing: Full Weight Instruction Topics: Ileus, Hernia Repair Laparoscopic Dc Health Concerns: DISCHARGE INSTRUCTIONS TEMPLATE: No heavy lifting, pushing, or pulling. Stairs are allowed, no strenuous/exertional activities. 5-10lbs weight carrying limit (i.e. gallon of milk) If provided, abdominal binder while out of bed and while ambulating. Call or proceed to clinic/ER for fevers, severe pain, nausea, vomiting, inability to pass flatus/stool, bleeding, wound redness/discharge, weakness, excessively loose stool/diarrhea, or for any other reasonably worrisome symptom or concern. Soft diet, no raw vegetables, avoid high fiber foods. Colace 100mg by mouth twice to three times daily while taking narcotic pain medication. If no bowel movement in 24-48hr, may take 17g Miralax in 8oz water twice daily until bowel movement. May shower, no submersive bathing. Follow up in clinic in 2-4 weeks for wound check and staple removal. No driving while taking narcotic pain medications. Follow up with primary care provider and/or medical subspecialist following discharge as well. Patient not allowed to drive self today or within 24 hours of surgery. Assessment: Avoid bowel regimen if persistent loose stool. Do not take slowing agents. Abhi moore up with me this week. No Smoking: If you smoke, Please STOP! Call for help. Follow-up with: Lul Candelaria DO [Primary Care Provider] - Edgar Dillard MD [Provider Admit Priv/Credential] -
[2020-06-05 18:11] LABS: BASOPHILS % (AUTO) 0.2 %; EOSINOPHILS # (AUTO) 0.3 10^3/uL (0.0-0.7); EOSINOPHILS % (AUTO) 2.3 %; HCT - HEMATOCRIT 35.4 % (42.0-52.0); HGB - HEMOGLOBIN 11.8 g/dL (14.0-18.0); LYMPHOCYTES # (AUTO) 1.4 10^3/uL (1.5-3.5); LYMPHOCYTES % (AUTO) 11.6 %; MEAN CORPUSCULAR HEMOGLOBIN 30.1 pg (27.0-31.0); MEAN CORPUSCULAR HGB CONC 33.3 g/dL (32.0-36.0); MEAN CORPUSCULAR VOLUME 90.3 fL (80.0-94.0); MEAN PLATELET VOLUME 9.7 fL (7.4-11.4); MONOCYTES # (AUTO) 0.8 10^3/uL (0.0-1.0); MONOCYTES % (AUTO) 6.3 %; NEUTROPHILS # (AUTO) 9.6 10^3/uL (1.5-6.6); NEUTROPHILS % (AUTO) 79.2 %; PLT - PLATELET COUNT 183 10^3/uL (130-450); RED BLOOD COUNT 3.92 10^6/uL (4.70-6.10); RED CELL DISTRIBUTION WIDTH 11.9 % (12.0-15.0); WHITE BLOOD COUNT 12.1 x10^3/uL (4.8-10.8)
[2020-06-05 18:24] LABS: ALBUMIN 3.5 g/dL (3.2-5.5); ALBUMIN/GLOBULIN RATIO 1.3 (1.0-2.2); BILIRUBIN,TOTAL 2.9 mg/dL (0.2-1.0); CALCIUM 8.4 mg/dL (8.5-10.3); CREATININE 0.9 mg/dL (0.6-1.2); POTASSIUM 3.5 mmol/L (3.5-5.0); TOTAL PROTEIN 6.1 g/dL (6.7-8.2)
== END 2020-06-05 19:30 | disposition home or self-care (01) ==
LOC: ED 00:35 → MS3 05:39
PROVIDERS: ADMIT Surgery; ATTEND Surgery
DX: K91.31 Postprocedural partial intestinal obstruction (principal); Y83.8 Other surgical procedures as the cause of abnormal reaction of the patient, or of later complication, without mention of misadventure at the time of the procedure; Y92.234 Operating room of hospital as the place of occurrence of the external cause; G47.30 Sleep apnea, unspecified; K44.9 Diaphragmatic hernia without obstruction or gangrene; Z87.891 Personal history of nicotine dependence; Z90.49 Acquired absence of other specified parts of digestive tract
CPT/HCPCS: 36415; 74019; 74177; 80053; 81003; 83690; 85025; 87493; 96365; 96366; 96368; 96372; 96375; 96376; 99285; A9270; G0378; J0131; J1170; J1650; J2765; Q9967; 81001; 87086

== ENCOUNTER 2020-06-08 08:00 | Outpatient (CLI) | payer OTHER ==
[2020-06-08 18:26] LABS: BASOPHILS # (AUTO) 0.1 10^3/uL (0.0-0.1); EOSINOPHILS # (AUTO) 0.3 10^3/uL (0.0-0.7); EOSINOPHILS % (AUTO) 3.6 %; HCT - HEMATOCRIT 43.7 % (42.0-52.0); HGB - HEMOGLOBIN 13.8 g/dL (14.0-18.0); LYMPHOCYTES # (AUTO) 1.4 10^3/uL (1.5-3.5); MEAN CORPUSCULAR HEMOGLOBIN 29.3 pg (27.0-31.0); MEAN CORPUSCULAR HGB CONC 31.6 g/dL (32.0-36.0); MEAN CORPUSCULAR VOLUME 92.8 fL (80.0-94.0); MEAN PLATELET VOLUME 10.6 fL (7.4-11.4); MONOCYTES # (AUTO) 0.8 10^3/uL (0.0-1.0); MONOCYTES % (AUTO) 10.1 %; NEUTROPHILS # (AUTO) 5.3 10^3/uL (1.5-6.6); NEUTROPHILS % (AUTO) 66.4 %; PLT - PLATELET COUNT 302 10^3/uL (130-450); RED BLOOD COUNT 4.71 10^6/uL (4.70-6.10)
[2020-06-08 19:24] LABS: ALBUMIN/GLOBULIN RATIO 1.2 (1.0-2.2); BILIRUBIN,TOTAL 1.3 mg/dL (0.2-1.0); CALCIUM 9.3 mg/dL (8.5-10.3); CREATININE 1.1 mg/dL (0.6-1.2); POTASSIUM 3.8 mmol/L (3.5-5.0); TOTAL PROTEIN 7.3 g/dL (6.7-8.2)
== END 2020-06-08 23:59 | disposition home or self-care (01) ==
LOC: LAB.WCP 08:00
PROVIDERS: ATTEND Family Medicine
DX: K56.7 Ileus, unspecified (principal); R94.5 Abnormal results of liver function studies
CPT/HCPCS: 36415; 80053; 83690; 85025

== ENCOUNTER 2020-08-16 13:55 | Outpatient (CLI) | payer OTHER ==
--- NOTE | 2020-08-16 16:04 | XRAY Report ---
PROCEDURE: Knee 3 View RT INDICATIONS: R KNEE PX TECHNIQUE: 3 views of the right knee(s) were acquired. COMPARISON: None. FINDINGS: Bones: No fractures or dislocations. No suspicious bony lesions. Mild medial and minimal patellofe moral compartment narrowing. No erosions or periarticular osteophytes. Soft tissues: No joint effusion. No suspicious soft tissue calcifications. IMPRESSION: Minimal arthritic change within the medial and patellofemoral compartments. Reviewed by: Annie Bedolla MD on 08/16/2020 4:03 PM PDT Approved by: Annie Bedolla MD on 08/16/2020 4:03 PM PDT Station ID: [id number]
== END 2020-08-16 23:59 | disposition home or self-care (01) ==
LOC: DI.N 13:55
PROVIDERS: ATTEND Nurse Practitioner
DX: M17.11 Unilateral primary osteoarthritis, right knee (principal)

== ENCOUNTER 2021-04-28 17:25 | Outpatient (CLI) | payer OTHER ==
[2021-04-28 21:04] LABS: BASOPHILS # (AUTO) 0.1 10^3/uL (0.0-0.1); BASOPHILS % (AUTO) 0.6 %; EOSINOPHILS # (AUTO) 0.2 10^3/uL (0.0-0.7); EOSINOPHILS % (AUTO) 2.4 %; HCT - HEMATOCRIT 43.8 % (42.0-52.0); HGB - HEMOGLOBIN 14.5 g/dL (14.0-18.0); LYMPHOCYTES # (AUTO) 2.3 10^3/uL (1.5-3.5); LYMPHOCYTES % (AUTO) 26.9 %; MEAN CORPUSCULAR HEMOGLOBIN 29.7 pg (27.0-31.0); MEAN CORPUSCULAR HGB CONC 33.1 g/dL (32.0-36.0); MEAN CORPUSCULAR VOLUME 89.6 fL (80.0-94.0); MEAN PLATELET VOLUME 10.6 fL (7.4-11.4); MONOCYTES # (AUTO) 0.7 10^3/uL (0.0-1.0); MONOCYTES % (AUTO) 8.4 %; NEUTROPHILS # (AUTO) 5.2 10^3/uL (1.5-6.6); NEUTROPHILS % (AUTO) 61.3 %; PLT - PLATELET COUNT 278 10^3/uL (130-450); RED BLOOD COUNT 4.89 10^6/uL (4.70-6.10); RED CELL DISTRIBUTION WIDTH 12.4 % (12.0-15.0); WHITE BLOOD COUNT 8.5 x10^3/uL (4.8-10.8)
[2021-04-28 21:16] LABS: ALBUMIN 4.6 g/dL (3.2-5.5); ALBUMIN/GLOBULIN RATIO 1.6 (1.0-2.2); BILIRUBIN,TOTAL 2.8 mg/dL (0.2-1.0); CALCIUM 9.1 mg/dL (8.5-10.3); CREATININE 1.1 mg/dL (0.6-1.2); POTASSIUM 4.4 mmol/L (3.5-5.0); TOTAL PROTEIN 7.4 g/dL (6.7-8.2)
== END 2021-04-28 17:26 | disposition home or self-care (01) ==
LOC: LAB.N 17:25
PROVIDERS: ATTEND Physician Assistant
DX: Z00.00 Encounter for general adult medical examination without abnormal findings (principal); R94.5 Abnormal results of liver function studies
CPT/HCPCS: 36415; 80053; 85025

== ENCOUNTER 2021-12-16 10:19 | Emergency (ER) | payer OTHER ==
[2021-12-16] MEDS ORDERED: IBUPROFEN 800 MG TABLET PO STA (11:01)
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
--- NOTE | 2021-12-16 11:32 | CT Report ---
PROCEDURE: CERVICAL SPINE WO INDICATIONS: neck injury w cervical radiculopathy TECHNIQUE: Noncontrast 3 mm thick sections acquired from the skull base to the T4 level. Sagittal and coronal r eformats were then constructed. For radiation dose reduction, the following was used: automated exp osure control, adjustment of mA and/or kV according to patient size. COMPARISON: None. FINDINGS: Image quality: Excellent. Bones: No fractures or dislocations. Mild to moderate degenerative change of the cervical spine. Dem onstrable by osteophytes, intervertebral disc space height loss, and uncovertebral joint hypertrophy. Visualized superior ribs are intact. Soft tissues: Prevertebral soft tissues are normal in thickness. No paravertebral hematomas. No ap ical pneumothoraces. IMPRESSION: No acute osseous abnormality. Reviewed by: Rajat Hill MD on 12/16/2021 10:30 AM TEJAL Approved by: Rajat Hill MD on 12/16/2021 10:30 AM TEJAL Station ID: [id number]
[2021-12-16 11:58] VITALS: BP 122/86
== END 2021-12-16 11:58 | disposition home or self-care (01) ==
LOC: ED 10:19
DX: M54.12 Radiculopathy, cervical region (principal); Z87.891 Personal history of nicotine dependence
CPT/HCPCS: 36415; 72125; 93005; 99284; A9270

== ENCOUNTER 2022-03-22 10:40 | Outpatient (CLI) | payer OTHER ==
[2022-03-22 19:05] LABS: BASOPHILS # (AUTO) 0.1 10^3/uL (0.0-0.1); BASOPHILS % (AUTO) 0.8 %; EOSINOPHILS # (AUTO) 0.2 10^3/uL (0.0-0.7); EOSINOPHILS % (AUTO) 2.7 %; HCT - HEMATOCRIT 44.6 % (42.0-52.0); HGB - HEMOGLOBIN 14.3 g/dL (14.0-18.0); LYMPHOCYTES # (AUTO) 1.6 10^3/uL (1.5-3.5); LYMPHOCYTES % (AUTO) 24.6 %; MEAN CORPUSCULAR HEMOGLOBIN 29.2 pg (27.0-31.0); MEAN CORPUSCULAR HGB CONC 32.1 g/dL (32.0-36.0); MEAN PLATELET VOLUME 10.7 fL (7.4-11.4); MONOCYTES # (AUTO) 0.7 10^3/uL (0.0-1.0); MONOCYTES % (AUTO) 10.9 %; NEUTROPHILS # (AUTO) 3.8 10^3/uL (1.5-6.6); NEUTROPHILS % (AUTO) 60.7 %; PLT - PLATELET COUNT 261 10^3/uL (130-450); WHITE BLOOD COUNT 6.3 x10^3/uL (4.8-10.8)
[2022-03-22 19:41] LABS: ALBUMIN 4.4 g/dL (3.2-5.5); ALBUMIN/GLOBULIN RATIO 1.5 (1.0-2.2); ALKALINE PHOSPHATASE 73 IU/L (42-121); ALT ALANINE AMINOTRANSFERASE 30 IU/L (10-60); AST ASPARTATE AMINOTRANSFERASE 26 IU/L (10-42); BILIRUBIN,TOTAL 2.6 mg/dL (0.2-1.0); BUN - BLOOD UREA NITROGEN 11 mg/dL (6-20); CALCIUM 9.3 mg/dL (8.5-10.3); CARBON DIOXIDE - CO2 28 mmol/L (21-32); CHLORIDE 104 mmol/L (101-111); CHOL/HDL RATIO 4.3 (<5.0); CHOLESTEROL 204 mg/dL; GFR - MDRD 78 (>89); GLUCOSE 99 mg/dL (70-100); HDL CHOLESTEROL 47 mg/dL; LDL CHOLESTEROL,CALCULATED 142 mg/dL; POTASSIUM 3.9 mmol/L (3.5-5.0); SODIUM 139 mmol/L (135-145); TOTAL PROTEIN 7.3 g/dL (6.7-8.2); TRIGLYCERIDES 74 mg/dL; VLDL CHOLESTEROL 15 mg/dL
== END 2022-03-22 10:41 | disposition home or self-care (01) ==
LOC: LAB.N 10:40
PROVIDERS: ATTEND Physician Assistant
DX: E80.6 Other disorders of bilirubin metabolism (principal); Z13.220 Encounter for screening for lipoid disorders; Z12.5 Encounter for screening for malignant neoplasm of prostate
CPT/HCPCS: 36415; 80053; 80061; 83721; 84153; 85025

== ENCOUNTER 2022-12-20 13:08 | Outpatient (CLI) | payer OTHER ==
--- NOTE | 2022-12-20 19:16 | XRAY Report ---
PROCEDURE: Lumbar Spine 2 View INDICATIONS: BACK PAIN TECHNIQUE: 3 view(s) of the lumbar spine were acquired. COMPARISON: None. FINDINGS: Bones: Vertebral body height and alignment is maintained. No suspicious bony lesions. Convex right t horacolumbar scoliosis. Degenerative disc space narrowing noted in the midthoracic spine. Hypertrophi c facet joints particularly lower thoracic spine Soft tissues: Overlying bowel gas pattern is normal. No suspicious soft tissue calcifications. IMPRESSION: Degenerative disc disease and arthropathy associated with partially imaged thoracolumbar dextroscoliosis. No fracture or traumatic malalignment Reviewed by: Aquilino Duran MD on 12/20/2022 6:15 PM TEJAL Approved by: Aquilino Duran MD on 12/20/2022 6:15 PM AKMARIA FERNANDA Station ID: [id number]
== END 2022-12-20 13:09 | disposition home or self-care (01) ==
LOC: DI 13:08
PROVIDERS: ATTEND Specialist
DX: M47.814 Spondylosis without myelopathy or radiculopathy, thoracic region (principal); M51.34 Other intervertebral disc degeneration, thoracic region; M41.9 Scoliosis, unspecified

== ENCOUNTER 2023-04-02 11:52 | Outpatient (CLI) | payer OTHER ==
[2023-04-02 18:14] LABS: BASOPHILS % (AUTO) 0.5 %; EOSINOPHILS # (AUTO) 0.1 10^3/uL (0.0-0.7); EOSINOPHILS % (AUTO) 1.1 %; HCT - HEMATOCRIT 45.8 % (42.0-52.0); LYMPHOCYTES # (AUTO) 1.5 10^3/uL (1.5-3.5); LYMPHOCYTES % (AUTO) 18.3 %; MEAN CORPUSCULAR HEMOGLOBIN 29.6 pg (27.0-31.0); MEAN CORPUSCULAR HGB CONC 32.8 g/dL (32.0-36.0); MEAN CORPUSCULAR VOLUME 90.5 fL (80.0-94.0); MEAN PLATELET VOLUME 11.1 fL (7.4-11.4); MONOCYTES # (AUTO) 0.6 10^3/uL (0.0-1.0); MONOCYTES % (AUTO) 7.8 %; NEUTROPHILS # (AUTO) 5.7 10^3/uL (1.5-6.6); NEUTROPHILS % (AUTO) 71.9 %; PLT - PLATELET COUNT 268 10^3/uL (130-450); RED BLOOD COUNT 5.06 10^6/uL (4.70-6.10); RED CELL DISTRIBUTION WIDTH 12.5 % (12.0-15.0); WHITE BLOOD COUNT 7.9 x10^3/uL (4.8-10.8)
[2023-04-02 18:27] LABS: ALBUMIN 4.7 g/dL (3.2-5.5); ALBUMIN/GLOBULIN RATIO 2.1 (1.0-2.2); ALKALINE PHOSPHATASE 80 IU/L (42-121); ALT ALANINE AMINOTRANSFERASE 31 IU/L (10-60); AST ASPARTATE AMINOTRANSFERASE 24 IU/L (10-42); BILIRUBIN,TOTAL 2.4 mg/dL (0.2-1.0); BUN - BLOOD UREA NITROGEN 9 mg/dL (6-20); CALCIUM 9.5 mg/dL (8.5-10.3); CARBON DIOXIDE - CO2 28 mmol/L (21-32); CHLORIDE 104 mmol/L (101-111); CHOL/HDL RATIO 3.7 (<5.0); CHOLESTEROL 191 mg/dL; CREATININE 1.1 mg/dL (0.6-1.3); GFR - MDRD 70 (>89); GLUCOSE 100 mg/dL (74-104); HDL CHOLESTEROL 52 mg/dL; LDL CHOLESTEROL,CALCULATED 120 mg/dL; LDL/HDL RATIO 2.3 (<3.6); POTASSIUM 4.4 mmol/L (3.5-4.5); SODIUM 138 mmol/L (135-145); TOTAL PROTEIN 6.9 g/dL (6.4-8.9); TRIGLYCERIDES 96 mg/dL (48-352); VLDL CHOLESTEROL 19 mg/dL
== END 2023-04-02 11:53 | disposition home or self-care (01) ==
LOC: LAB.N 11:52
PROVIDERS: ATTEND Physician Assistant
DX: E80.6 Other disorders of bilirubin metabolism (principal); R03.0 Elevated blood-pressure reading, without diagnosis of hypertension; Z13.220 Encounter for screening for lipoid disorders; R97.20 Elevated prostate specific antigen [PSA]
CPT/HCPCS: 36415; 80053; 80061; 83721; 84153; 85025